=== PATIENT | female | born 1995 | race Two or more races ===

== ENCOUNTER 2023-05-19 23:36 | Emergency (ER) | payer OTHER ==
[~2023-05-19] VITALS: Ht 170.2 cm; Wt 86.2 kg
[2023-05-20] MEDS ORDERED: LAMICTAL150 M1 PO (00:08)
[2023-05-20] MEDS ORDERED: ATOMOXETINE HCL60 MG (00:09)
[2023-05-20 03:56] LABS: PH,URINE 5.5 (5.0-8.0); URINE APPEARANCE Turbid; URINE BILIRRUBIN Negative (NEGATIVE); URINE BLOOD Large; URINE COLOR Yellow; URINE GLUCOSE Negative (NEGATIVE); URINE LEUKOCYTE Moderate; URINE NITRATE Negative
[2023-05-20 03:57] LABS: URINE BACTERIA 371.6 uL (0.0-1933); URINE EPITHELIAL CELLS 13.7 uL (0.0-38.8); URINE RBC 5872.8 uL (0.0-20.8)
[2023-05-20 04:03] LABS: URINE PROTEIN 300 (NEGATIVE)
[2023-05-20] MEDS ORDERED: CIPRO500 MG PO (06:22)
[2023-05-20] MEDS ORDERED: PYRIDIUM DS200 MG PO (06:22)
== END 2023-05-20 07:16 | disposition home or self-care (01) ==
LOC: ER 23:37
PROVIDERS: General Practice
DX: N30.91 Cystitis, unspecified with hematuria (principal)
CPT/HCPCS: 96372; 99283; J0696